=== PATIENT | female | born 1955 | race Caucasian/White ===

== ENCOUNTER 2021-12-07 14:46 | Emergency (ER) | payer MEDICARE, OTHER ==
[2021-12-07] MEDS ORDERED: Lidocaine 2% 5 ML SDV INJECT ONE (15:12)
[2021-12-07] MEDS ORDERED: Bacitracin/Neomycin/Polymyxin B Oint 0.9 GM U/D Packet TOP ONE (16:11)
[2021-12-07] MEDS ORDERED: Bacitracin/Neomycin/Polymyxin B Oint 0.9 GM U/D Packet ONE (16:11)
[2021-12-07] MEDS ORDERED: Sodium Chloride 0.9% 10 ML Syringe FLUSH PRN (16:29)
[2021-12-07] MEDS ORDERED: ceFAZolin 1 GM Vial IVPUSH ONE (16:29)
== END 2021-12-07 17:10 | disposition home or self-care (01) ==
LOC: LL.ED 14:46
DX: S61.220A Laceration with foreign body of right index finger without damage to nail, initial encounter (principal); E78.00 Pure hypercholesterolemia, unspecified; Z79.82 Long term (current) use of aspirin; Z79.899 Other long term (current) drug therapy; W27.3XXA Contact with needle (sewing), initial encounter
CPT/HCPCS: 73140-F6; 96365; 99283; 99283-25; J0690; J3490